=== PATIENT | female | born 1950 | race Caucasian/White ===

== ENCOUNTER → 2016-09-02 | Outpatient (CLI) | payer OTHER, MEDICARE | LOC: FIMAGING 08:17 | PROVIDERS: ATTEND Internal Medicine | DX: K59.00 Constipation, unspecified (principal); J98.11 Atelectasis; S22.41XA Multiple fractures of ribs, right side, initial encounter for closed fracture; M41.86 Other forms of scoliosis, lumbar region; M51.36 Other intervertebral disc degeneration, lumbar region ==

== ENCOUNTER → 2017-06-27 | Outpatient (CLI) | payer OTHER, MEDICARE | LOC: FIMAGING 11:17 | PROVIDERS: ATTEND Internal Medicine | DX: Z12.31 Encounter for screening mammogram for malignant neoplasm of breast (principal) ==

== ENCOUNTER 2017-07-13 08:24 | Observation (INO) | payer OTHER, MEDICARE ==
[2017-07-13 09:01] LABS: PLATELET COUNT 121 10^3/uL (150-400)
--- NOTE | 2017-07-13 09:06 | EDPHY ---
General - History Smoking Status: Never smoked Time Seen by Provider: 07/13/17 08:54 Narrative: CHIEF COMPLAINT: Sternal pain, right chest and rib pain HISTORY OF PRESENT ILLNESS: Patient presents with complaints of sternal and right-sided rib and chest pain. This started approximately 1 week ago when she tripped and fell. She was traveling in [place] when she tripped over a step, landing face forward. She struck her chest and face. She denies loss of consciousness, headache or neck pain. She has had constant sternal and right-sided anterior rib and anterolateral rib pain since that time. It is steadily worsened to the point that she has difficulty taking a deep breath. She has felt worsening pain and some shortness of breath. She has had a cough that has been "wet." Questionable fever. No abdominal pain. No nausea or vomiting. No injury elsewhere. No medical care to this point. No other associated complaints or modifying factors. REVIEW OF SYSTEMS: Ten systems reviewed and are negative unless otherwise noted in the HPI PCP: Dr. 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 No drug or alcohol use. Lives independently with her spouse FAMILY HISTORY: Noncontributory EXAMINATION General Appearance: Alert, no distress Head: normocephalic, atraumatic Eyes: Pupils equal and round, no conjunctival pallor or injection ENT, Mouth: Mucous membranes moist Neck: Normal inspection, supple, non-tender Respiratory: Lungs are clear to auscultation. No wheezing, rhonchi or crackles. There is tenderness to the sternum and on the right anterior ribs. Cardiovascular: Regular rate and rhythm. No murmur. Gastrointestinal: Abdomen is soft and nontender Back: non-tender, no bony abnormalities Neurological: GCS 15. A&O, nonfocal, normal gait. No pronator drift. Normal [id number]. Skin: Warm and dry, no rash. No petechiae or purpura. No ecchymosis. Extremities: Nontender, no pedal edema. Symmetric range of motion extremities. Psychiatric: Mood and affect normal DIFFERENTIAL DIAGNOSES: Including but not limited to sternal fracture, mediastinal hematoma, rib fracture, pneumothorax, hemothorax, pulmonary contusion, atelectasis MDM: 9:05 a.m. Sternal and right-sided chest pain after a fall approximately 1 week ago. She is mildly hypoxemic but not tachycardic or tachypneic. She is in no acute distress. Laboratory studies are pending. Chest x-ray is pending. I have ordered an EKG and placed her on 2 L nasal cannula. Case discussed with Dr. Jennings 9:30 a.m. CBC is unremarkable. Coag studies minimally abnormal with INR 1.46. Troponin is negative. Chemistry is pending. Chest x-ray as read by me, without the aid of the radiologist, reveals possible sternal fracture and anterior rib fractures. I will obtain a CT scan of the chest for better evaluation. I have re-evaluated the patient and discussed this with her and she agrees to proceed with study. 10:20 a.m. Case discussed with radiologist Dr. Redman. CT scan does reveal sternal fracture as documented. No hematoma. There also right anterior rib fractures and other subacute rib fractures. No other acute findings. 10:30 a.m. I have re-evaluated the patient. I have taken her off of her nasal cannula. We will ambulate her and monitor her pulse oximetry. Her pain is controlled at rest, but we will place a lidocaine patch for patient directed pain control. 10:40 a.m. Case discussed with trauma surgeon Dr. George. He will evaluate the patient in the emergency department. 11:[address] George has evaluated the patient. He reports a from a trauma standpoint she is marginal for admission. His opinion is that she is likely safe for discharge home as her oxygenation is in the low 90s per he says he would be happy to evaluate the patient for pulmonary toilet tree, oxygenation and pain control. But he is requesting hospitalist consultation as the patient is complicated with her cirrhosis and has reported to him frequent falls. At this time the patient be admitted to his service in stable condition. 11:50 a.m. Case discussed with hospitalist Izabel Whitlock. Hospitalist will provide consultation for the patient. She remains in the emergency department thus far. I have re-evaluated her pain is improvement a Lidoderm patch. Vital signs remained stable with mild hypoxemia at times. 12:30 p.m. Patient is currently being evaluated by Dr. Fung. EKG interpretation: Dr. Jennings Sinus rhythm. No ischemia. SUPERVISION: Patient was independently examined, but I discussed the case with my secondary supervising physician Dr. Jennings (Ab Bentley) Medical Decision Making: I did not see this patient while she was in the emergency department. However her care was discussed with the PA while the patient was in the department. I agree with treatment plan and management (Marilin Jennings) - Diagnostics Imaging Results: Imaging Impressions Chest X-Ray 07/13/17 08:49 Impression: 1. Mildly displaced sternal fracture. There is no evidence of a pneumothorax or pneumomediastinum. 2. Fractures of the peripheral lateral left eighth rib, and right fifth and sixth anterolateral rib fractures. 3. Small bilateral pleural effusions, with bibasilar atelectasis. 4. Cardiomegaly. Findings were discussed with MARILIN JENNINGS MD at 9:53, on 07/13/2017, who has requested a chest CT. Chest/Thorax CTA 07/13/17 09:36 Impression: 1. Acute nondisplaced sternal fracture. No mediastinal/retrosternal hematoma. 2. Acute nondisplaced anterior right third, fourth, and fifth rib fractures. 3. Numerous bilateral subacute partially healed rib fractures. 4. Bibasilar atelectasis. No pneumothorax or pulmonary contusion. 5. Multilevel degenerative disk disease. No thoracic spine fracture. Findings discussed with Emergency Department, CHARLIE Costa, on 07/13/2017 at 10:28 a.m. - Objective Vital Signs: Initial Vital Signs Temperature (C) 37.4 C 07/13/17 08:31 Heart Rate 90 07/13/17 08:31 Respiratory Rate 14 07/13/17 08:31 Blood Pressure 161/73 H 07/13/17 08:31 O2 Sat (%) 88 L 07/13/17 08:31 O2 Delivery Mode Room Air O2 (L/minute) 2 Allergies/Adverse Reactions: cortisone [Cortisone] Allergy (Severe, Verified 07/13/17 08:31) Hives oxycodone HCl [From Percocet] Allergy (Intermediate, Verified 07/13/17 08:31) Itching acetaminophen [From Percocet] Allergy (Unknown, Verified 07/13/17 08:31) UNK Home Medications: Medication Instructions Recorded Calcium Carb W/Vit D [Calcium Carb 500 mg PO DAILY 10/29/09 W/Vit D 500/200 (*)] Esomeprazole Mag Trihydrate 40 mg PO HS 07/13/17 [Nexium] FLUoxetine [Prozac 20 MG (*)] 20 mg PO DAILY 07/13/17 Furosemide [Lasix 40 MG (*)] 40 mg PO DAILY 07/13/17 Herbals/Supplements -Info Only 1 ea PO DAILY 07/13/17 Tillar-3 Fatty Acids [Fish Oil 1000 1,000 mg PO DAILY 07/13/17 mg (*)] Rifaximin [Xifaxan] 550 mg PO BID 07/13/17 Spironolactone [Aldactone 50 MG 50 mg PO DAILY 07/13/17 (RX)] Laboratory Results: Laboratory Results 07/13/17 08:46 07/13/17 08:46 07/13/17 07/13/17 07/13/17 09:13 08:46 08:46 WBC RBC Hgb Hct MCV MCH MCHC RDW Plt Count MPV Neut % (Auto) Lymph % (Auto) Oldham % (Auto) Eos % (Auto) Baso % (Auto) Nucleat RBC Rel Count Absolute Neuts (auto) Absolute Lymphs (auto) Absolute Monos (auto) Absolute Eos (auto) Absolute Basos (auto) Absolute Nucleated RBC Immature Gran % Immature Gran # PT 17.9 SEC H SEC (12.0-15.0) INR 1.46 H (0.83-1.16) APTT 34.5 SEC SEC (23.0-38.0) Sodium 140 mEq/L mEq/L (135-145) Potassium 4.6 mEq/L mEq/L (3.3-5.0) Chloride 106 mEq/L mEq/L (97-110) Carbon Dioxide 25 mEq/l mEq/l (22-31) Anion Gap 9 mEq/L mEq/L (8-16) BUN 17 mg/dL mg/dL (7-23) Creatinine 0.6 mg/dL mg/dL (0.6-1.0) Estimated GFR > 60 Glucose 157 mg/dL H mg/dL (70-100) Calcium 9.0 mg/dL mg/dL (8.5-10.4) Troponin I < 0.012 ng/mL ng/mL (0.000-0.034) NT-Pro-B Natriuret Pep 185 pg/mL H pg/mL (0-125) 07/13/17 08:46 WBC 4.77 10^3/uL 10^3/uL (3.80-9.50) RBC 3.85 10^6/uL L 10^6/uL (4.18-5.33) Hgb 13.3 g/dL g/dL (12.6-16.3) Hct 38.0 % % (38.0-47.0) MCV 98.7 fL fL (81.5-99.8) MCH 34.5 pg H pg (27.9-34.1) MCHC 35.0 g/dL g/dL (32.4-36.7) RDW 13.2 % % (11.5-15.2) Plt Count 121 10^3/uL L 10^3/uL (150-400) MPV 10.3 fL fL (8.7-11.7) Neut % (Auto) 57.3 % % (39.3-74.2) Lymph % (Auto) 27.7 % % (15.0-45.0) Oldham % (Auto) 9.6 % % (4.5-13.0) Eos % (Auto) 3.8 % % (0.6-7.6) Baso % (Auto) 0.6 % % (0.3-1.7) Nucleat RBC Rel Count 0.0 % % (0.0-0.2) Absolute Neuts (auto) 2.73 10^3/uL 10^3/uL (1.70-6.50) Absolute Lymphs (auto) 1.32 10^3/uL 10^3/uL (1.00-3.00) Absolute Monos (auto) 0.46 10^3/uL 10^3/uL (0.30-0.80) Absolute Eos (auto) 0.18 10^3/uL 10^3/uL (0.03-0.40) Absolute Basos (auto) 0.03 10^3/uL 10^3/uL (0.02-0.10) Absolute Nucleated RBC 0.00 10^3/uL 10^3/uL (0-0.01) Immature Gran % 1.0 % % (0.0-1.1) Immature Gran # 0.05 10^3/uL 10^3/uL (0.00-0.10) PT INR APTT Sodium Potassium Chloride Carbon Dioxide Anion Gap BUN Creatinine Estimated GFR Glucose Calcium Troponin I NT-Pro-B Natriuret Pep Medications Given: Acetaminophen (Tylenol) 325 - 650 mg PO Q4HRS PRN PRN Reason: Pain, Mild Able to Take PO Stop: 01/09/18 11:53 Last Admin: 07/13/17 14:22 Dose: 650 mg Miscellaneous Information (Patch Removal) 1 ea TD DAILY21 BRITTNEY Stop: 01/09/18 20:59 Last Admin: 07/13/17 10:44 Dose: Not Given Miscellaneous Medication (Icy Hot Lidocaine/Menthol 4%/1% Patch) 1 patch TD DAILY BRITTNEY Stop: 01/09/18 12:14 Last Admin: 07/13/17 14:23 Dose: 1 patch Rifaximin (Xifaxan) 550 mg PO BID BRITTNEY PRN Reason: Protocol Stop: 08/12/17 12:59 Last Admin: 07/13/17 14:23 Dose: 550 mg Discontinued Medications Sodium Chloride (Ns) 500 mls @ 0 mls/hr IV EDNOW ONE; Wide Open PRN Reason: Protocol Stop: 07/13/17 09:40 Last Admin: 07/13/17 09:41 Dose: 500 mls Miscellaneous Medication (Icy Hot Lidocaine/Menthol 4%/1% Patch) 1 patch TD EDNOW ONE Stop: 07/13/17 10:37 Last Admin: 07/13/17 10:43 Dose: 1 patch Departure - Departure Disposition: [facility] Inpatient Acute Clinical Impression: Liver cirrhosis secondary to MEDEROS Sternal fracture Qualifiers: Encounter type: initial encounter Sternal location: body of sternum Fracture type: closed Qualified Code(s): S22.22XA - Fracture of body of sternum, initial encounter for closed fracture Multiple fractures of ribs Qualifiers: Encounter type: initial encounter Fracture type: closed Laterality: right Qualified Code(s): S22.41XA - Multiple fractures of ribs, right side, initial encounter for closed fracture Condition: Good
[2017-07-13 09:20] LABS: INR 1.46 (0.83-1.16); PROTIME(PATIENT) 17.9 SEC (12.0-15.0)
--- NOTE | 2017-07-13 09:35 | CPEKG ---
Heart Rate: 67 RR Interval: 896 P-R Interval: 152 QRSD Interval: 74 QT Interval: 400 QTC Interval: 423 P Gallion: 2 QRS Gallion: 35 T Wave Gallion: 40 EKG Severity - NORMAL ECG - EKG Impression: SINUS RHYTHM Electronically Signed By: Serjio Jennings 13-Jul-2017 15:56:25
[2017-07-13] MEDS ORDERED: NS 500 ML IV ONE (09:39)
[2017-07-13] MEDS ORDERED: IOPAMIDOL (ISOVUE 370) 100 ML BTL IV ONE (09:43)
[2017-07-13] MEDS ORDERED: LIDOCAINE 4%/MENTHOL 1% PATCH TD ONE ×2 (10:36→10:37)
[2017-07-13] MEDS: PATCH REMOVAL 1 EA PATCH TD SCH (10:44)
--- NOTE | 2017-07-13 12:34 | PDGENHP ---
History and Physical - Chief Complaint Chest and back pain - History of Present Illness 66-year-old female end-stage liver disease s/p TIPS who presents complaining of chest and back pain status post fall about a week ago. Patient states that she has mainly presenting as she is experiencing more frequent falls in, stating that she fell last week denies loss of consciousness but does state that she fell and hit her chest and has persistent pain since then. [place], she did call her primary care who was in town here who requested that she come to the emergency department for further evaluation. On my evaluation, the patient describes anterior chest as well as right-sided posterior chest pain. She declines having any syncope or syncopal episodes but does state that she is getting dizzy year then she does typically. She has end- stage liver disease, is on the transplant list, frequently gets her labs drawn and is followed by a waitstaff captain at the [facility]. Currently, other than the pain which she describes as sharp, worse with movement, 7/10 in intensity she has no complaints. History Information - Allergies/Home Medication List Allergies/Adverse Reactions: cortisone [Cortisone] Allergy (Severe, Verified 07/13/17 08:31) Hives oxycodone HCl [From Percocet] Allergy (Intermediate, Verified 07/13/17 08:31) Itching acetaminophen [From Percocet] Allergy (Unknown, Verified 07/13/17 08:31) UNK Home Medications: Calcium Carb W/Vit D [Calcium Carb W/Vit D 500/200 (*)] 500 mg PO DAILY [Last Taken 07/12/17] Esomeprazole Mag Trihydrate [Nexium] 40 mg PO HS 07/13/17 [Last Taken 07/12/17] FLUoxetine [Prozac 20 MG (*)] 20 mg PO DAILY 07/13/17 [Last Taken 07/12/17] Furosemide [Lasix 40 MG (*)] 40 mg PO DAILY 07/13/17 [Last Taken 07/12/17] Herbals/Supplements -Info Only 1 ea PO DAILY 07/13/17 [Last Taken Unknown] Oneco-3 Fatty Acids [Fish Oil 1000 mg (*)] 1,000 mg PO DAILY 07/13/17 [Last Taken 07/12/17] Rifaximin [Xifaxan] 550 mg PO BID 07/13/17 [Last Taken 07/12/17 21:00] Spironolactone [Aldactone 50 MG (RX)] 50 mg PO DAILY 07/13/17 [Last Taken ] I have personally reviewed and updated: family history, medical history, social history, surgical history Past Medical History: End-stage liver disease secondary to MEDEROS - Surgical History Additional surgical history: TIPS 5 years ago performed at the [facility], bilateral knee replacements - Social History Smoking Status: Never smoked Alcohol Use: None Review of Systems Review of Systems: ROS: 10pt was reviewed & negative except for what was stated in HPI & below Physical Exam Physical Exam: Temp Pulse Resp BP Pulse Ox 36.6 C 75 14 145/81 H 92 07/13/17 10:50 07/13/17 10:50 07/13/17 10:50 07/13/17 10:50 07/13/17 10:50 Constitutional: no apparent distress, appears nourished, not in pain Eyes: PERRL, anicteric sclera, EOMI Ears, Nose, Mouth, Throat: moist mucous membranes, hearing normal, ears appear normal, no oral mucosal ulcers Cardiovascular: regular rate and rhythym, no murmur, rub, or gallop, No edema Respiratory: no respiratory distress, no rales or rhonchi, clear to auscultation , other (Tender to palpation in anterior and right chest no crepitus no step offs) Gastrointestinal: normoactive bowel sounds, soft, non-tender abdomen, no palpable masses, other (No fluid wave) Genitourinary: no bladder fullness, no bladder tenderness Skin: warm, normal color, no rashes or abrasions, no fluctuance, no induration, No mottled Musculoskeletal: full muscle strength, no muscle tenderness, normal joint ROM, no joint effusions Psychiatric: interacting appropriately, not anxious, not encephalopathic, thought process linear Lymph, Heme, Immunologic: no cervical LAD, no supraclavicular LAD Lab Data & Imaging Review 07/13/17 08:46 07/13/17 08:46 WBC 4.77 10^3/uL (3.80-9.50) 07/13/17 08:46 RBC 3.85 10^6/uL (4.18-5.33) L 07/13/17 08:46 Hgb 13.3 g/dL (12.6-16.3) 07/13/17 08:46 Hct 38.0 % (38.0-47.0) 07/13/17 08:46 MCV 98.7 fL (81.5-99.8) 07/13/17 08:46 MCH 34.5 pg (27.9-34.1) H 07/13/17 08:46 MCHC 35.0 g/dL (32.4-36.7) 07/13/17 08:46 RDW 13.2 % (11.5-15.2) 07/13/17 08:46 Plt Count 121 10^3/uL (150-400) L 07/13/17 08:46 MPV 10.3 fL (8.7-11.7) 07/13/17 08:46 Neut % (Auto) 57.3 % (39.3-74.2) 07/13/17 08:46 Lymph % (Auto) 27.7 % (15.0-45.0) 07/13/17 08:46 Stone % (Auto) 9.6 % (4.5-13.0) 07/13/17 08:46 Eos % (Auto) 3.8 % (0.6-7.6) 07/13/17 08:46 Baso % (Auto) 0.6 % (0.3-1.7) 07/13/17 08:46 Nucleat RBC Rel Count 0.0 % (0.0-0.2) 07/13/17 08:46 Absolute Neuts (auto) 2.73 10^3/uL (1.70-6.50) 07/13/17 08:46 Absolute Lymphs (auto) 1.32 10^3/uL (1.00-3.00) 07/13/17 08:46 Absolute Monos (auto) 0.46 10^3/uL (0.30-0.80) 07/13/17 08:46 Absolute Eos (auto) 0.18 10^3/uL (0.03-0.40) 07/13/17 08:46 Absolute Basos (auto) 0.03 10^3/uL (0.02-0.10) 07/13/17 08:46 Absolute Nucleated RBC 0.00 10^3/uL (0-0.01) 07/13/17 08:46 Immature Gran % 1.0 % (0.0-1.1) 07/13/17 08:46 Immature Gran # 0.05 10^3/uL (0.00-0.10) 07/13/17 08:46 PT 17.9 SEC (12.0-15.0) H 07/13/17 08:46 INR 1.46 (0.83-1.16) H 07/13/17 08:46 APTT 34.5 SEC (23.0-38.0) 07/13/17 08:46 Sodium 140 mEq/L (135-145) 07/13/17 08:46 Potassium 4.6 mEq/L (3.3-5.0) 07/13/17 08:46 Chloride 106 mEq/L (97-110) 07/13/17 08:46 Carbon Dioxide 25 mEq/l (22-31) 07/13/17 08:46 Anion Gap 9 mEq/L (8-16) 07/13/17 08:46 BUN 17 mg/dL (7-23) 07/13/17 08:46 Creatinine 0.6 mg/dL (0.6-1.0) 07/13/17 08:46 Estimated GFR > 60 07/13/17 08:46 Glucose 157 mg/dL (70-100) H 07/13/17 08:46 Calcium 9.0 mg/dL (8.5-10.4) 07/13/17 08:46 Troponin I < 0.012 ng/mL (0.000-0.034) 07/13/17 08:46 NT-Pro-B Natriuret Pep 185 pg/mL (0-125) H 07/13/17 09:13 Visualized and Interpreted imaging results: Yes Interpretation: Chest film and CTA: Acute sternal fracture, acute rib fractures , multiple healed rib fractures no hemopneumothorax Assessment & Plan Assessment: 66-year-old female in stage liver disease secondary to nonalcoholic steatohepatitis, MELD of 17 Plan: On my examination the emergency department, the patient looks stable at this point. Given her medical comorbidities and in light of her increasing number of falls in addition to her tachycardia and hypoxemia I do feel that admission at least for observation is warranted so that we can ensure that no acute medical process is currently happening. I have asked the emergency department to have the medical service see her as well. Plan will be for pain control utilizing lidocaine patches and low doses of Tylenol as this is her outpatient pain control regimen. Place her on her monitor and storage bin tender given her sternal fracture but I do not see any acute changes on her EKG, no role for echocardiogram here. Will check some further liver function enzymes as well as an ammonia level. Discussed my rationale for admission with the patient she is in agreement.
--- NOTE | 2017-07-13 13:27 | GCON ---
[f rep st] CONSULTATION DATE OF CONSULTATION: 07/13/2017 HISTORY OF PRESENT ILLNESS: The patient is a pleasant 66-year-old female with a history of cirrhosis secondary to nonalcoholic steatohepatitis, as well as frequent falls, who comes into the emergency d epartment about a week after a fall. She is being admitted to the Trauma Service for further evaluat ion. I am asked to comment on her medical contributions to her falls. With regard to her falls, she describes the last one as tripping over something, on some toys in her house. It sounds like she takes care of her grandkids. She has had her eyes checked and found her v isual chapman to be intact. She denies antecedent orthostasis or presyncopal type symptoms. She is n ot having chest pain. She does not have a significant amount of lower extremity edema. She has gone through physical therapy following falls. She had a fall where she broke her left humer us. She does not take narcotics. She does not take marijuana products and does not drink alcohol. She does not appear to be losing consciousness with these falls. It sounds like there may be some cl utter in her house, but she has worked to get rid of that. She notes that she has not been a klutz all her life. REVIEW OF SYSTEMS: Complete 10-point review of systems conducted and negative, except as noted in th e HPI. PAST MEDICAL HISTORY: 1. Cirrhosis secondary to MEDEROS. 2. Knee replacement. 3. Humerus fracture. 4. Rotator cuff repair. ALLERGIES: Cortisone, oxycodone, and acetaminophen. HOME MEDICATIONS: Lasix, spironolactone, rifaximin, Kristalose (which is like lactulose), fluoxetine , esomeprazole, calcium carbonate. SOCIAL HISTORY: No alcohol. No tobacco. Lives in [place]. FAMILY HISTORY: Reviewed and unremarkable. PHYSICAL EXAMINATION: VITAL SIGNS: Temp 37.4, blood pressure 161/73, pulse 90, breathing 14 times a minute, 88% on room air, 94% on 2 L. GENERAL: No acute distress. HEENT: Sclerae are icteric. Or opharynx clear. Mucous membranes are moist. NECK: Supple, without lymphadenopathy or JVD. LUNGS: Clear to auscultation bilaterally. HEART: S1, S2, with moderate ascites. ABDOMEN: Soft, nontende r, nondistended. LOWER EXTREMITIES: Trace edema bilaterally. Calves are nontender. SKIN: Without rash. NEUROLOGIC: Exam is nonfocal. LABS: White count 4.8, hematocrit 38. Platelets are 121,000. INR is 1.46. Sodium 140, potassium 4 .6, chloride 106, bicarb 25, BUN 17, creatinine 0.6, glucose 157. Troponin less than 0.012. BNP is modestly elevated at 185. Ammonia is 32. EKG interpreted by me shows sinus at 67 with normal axis a nd intervals. There are no ST or T-wave changes. There are no noted pauses. Chest x-ray interprete d by me shows rib fractures, small effusion. CTA of the chest shows nondisplaced sternal fracture, a cute anterior right 3rd, 4th and 5th rib fractures. Numerous bilateral, subacute, partially healed r ib fractures, bibasilar atelectasis. No pulmonary contusion. I have discussed the case with JACKIE Alamo, of the Emergency Department. ASSESSMENT/PLAN: 1. A 66-year-old female with cirrhosis, with frequent falls. 2. Falls. These appear to be mechanical in nature in the sense that she is tripping over stuff. Sh inna claims to have had a normal eye exam. a. I think ongoing physical and occupational therapy with balance training would be appropriate, as well as a decluttering and perhaps home safety evaluation. b. Medical causes of the falls are not apparent from the history, but it is reasonable to follow on telemetry and check an echocardiogram. Pulmonary hypertension can coexist with cirrhosis. This can cause syncope. 3. Cirrhosis. Continue her diuretics and rifaximin. 4. Elevated BNP. This is barely elevated. Would not further evaluate this. 5. Hypoxemia. Encourage incentive spirometry. 6. Prophylaxis. Will provide SCDs. 7. Disposition as per Trauma Surgery. We will follow this patient with you. Thank you for this consultation. /[id number]/MODL
[2017-07-13] MEDS: ACETAMINOPHEN 325 MG TAB PO PRN ×2 (14:22→22:33)
[2017-07-13] MEDS: LIDOCAINE 4%/MENTHOL 1% PATCH TD SCH (14:23)
[2017-07-13] MEDS: RIFAXIMIN 550 MG TAB PO SCH ×2 (14:23→22:33)
--- NOTE | 2017-07-13 14:59 | ECHO ---
[email or web address] [address] [address] Main: [phone] Fax: Transthoracic Echocardiogram Name: KARI VARGAS MR#: [id number] Study Date: 07/13/2017 Study Time: 01:51 PM Date of : 1950 Age: 66 year(s) Height: 165.1 cm (65 in.) Weight: 76.2 kg (168 lb.) BSA: 1.84 m2 Gender: Female Examination: Echo Indication: ESLD Image Quality: Contrast: Requested by: Robin Fung BP: 164 mmHg/74 mmHg Heart Rate: Rhythm: Indication: ESLD Procedure Staff Professional Caster: Heraclio Kerns RDCS Reading Physician: Requesting Provider: Measurements: Chambers Valvular Assessment AV/MV Valvular Assessment TV/PV Normal Normal Normal Name Value Range Name Value Range Name Value Range IVSd (2D): 0.8 cm (0.6 cm-1.1 AV Vmax: 1.91 m/s (1 m/s-1.7 TR Vmax: 2.55 mm/s ( - ) cm) m/s) TR PGmax: 26 mmHg ( - ) LVDd (2D): 4.0 cm (3.9 cm-5.3 AV maxP mmHg ( - ) syst. PAP: 31 mmHg ( - ) cm) LVOT Vmax: 1.32 m/s (0.7 m/s-1.1 PV Vmax: 1.17 m/s (0.6 m/s-0.9 LVDs (2D): 2.1 cm (2.1 cm-4 m/s) m/s) cm) MV E Vmax: 1.22 m/s ( - ) PV PGmax: 5 mmHg ( - ) LVPWd (2D): 0.8 cm ( - ) MV A Vmax: 1.10 m/s ( - ) Visual EF: 70 % MV E/A: 1.11 ( - ) EF Range: 65-70 % Continued Measurements: Chambers Valvular Assessment AV/MV Valvular Assessment TV/PV Name Value Name Value Name Value LADs Lon.8 cm MV E' Septal: 0.09 m/s CVP (est.): 5 mmHg LA Area: 17.8 cm2 MV E/E' Septal: 13.80 LA Volume: 52 ml MV E/E' Lateral: 11.30 LA Volume Index: 28.3 ml/m2 Findings: Left Ventricle: Normal size left ventricle. No LV hypertrophy. Global hypercontractility of the left ventricle. The ejection fraction is estimated to be 65-70 %. The ejection fraction is visually estimated to be 70 %. No regional wall motion abnormality. Diastolic dysfunction is present. . Right Ventricle: Patient: KARI VARGAS Study Date: 07/13/2017 Page 1 of 2 01:51 PM Normal size right ventricle. Normal RV function. Left Atrium: The left atrium is normal in size. Right Atrium: The right atrium is normal in size. Mitral Valve: Mild mitral valve leaflet calcification is present. There is no mitral valve regurgitation. Aortic Valve: The aortic valve is tri-leaflet. Minimal aortic cusp calcification is noted. Trivial aortic valve regurgitation. Tricuspid Valve: The tricuspid valve appears normal. Pulmonic Valve: The pulmonic valve is normal in appearance and function. Aorta: The aorta is normal. Pericardium: No pericardial effusion. (No Signature Object) Patient: KARI VARGAS Study Date: 07/13/2017 Page 2 of 2 01:51 PM [id number]
[2017-07-13] MEDS ORDERED: PATCH REMOVAL 1 EA PATCH TD SCH (21:00)
[2017-07-13] MEDS ORDERED: NON-FORMULARY NEW DRUG (Esomeprazole Mag Trihydrate [Nexium] 40 MG) PO SCH (21:00)
[2017-07-13] MEDS: PANTOPRAZOLE SODIUM 40 MG TAB PO SCH (22:24)
[2017-07-14] MEDS ORDERED: Herbals/Supplements -Info Only PO SCH (09:00)
--- NOTE | 2017-07-14 09:28 | TRAUMAPN ---
Trauma Progress Note - Problem/Surgery Performed (1) Fall in home Assessment/Plan: patient remembers tripping and did not lose consciousness/agree with Dr. 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 Assessment/Plan: chronic/on transplant list mild elevation INR mild thrombocytopenia will hold off on VTE prophylaxis for now (3) Multiple fractures of ribs Assessment/Plan: clinically stable/discussed importance of chest physiotherapy and deep breathing Qualifiers: Encounter type: initial encounter Fracture type: closed Laterality: right Qualified Code(s): S22.41XA - Multiple fractures of ribs, right side, initial encounter for closed fracture (4) Sternal fracture Assessment/Plan: discussed non-operative management ECHO reviewed with patient, no pericardial effusion, mild AI, normal EF consider bone density as outpatient Qualifiers: Encounter type: initial encounter Sternal location: body of sternum Fracture type: closed Qualified Code(s): S22.22XA - Fracture of body of sternum, initial encounter for closed fracture Assessment/Plan: s/p fall with sternal and rib fx. co-morbidities due to cirrhosis discussed need for OT/PT assesments if cleared by OT/PT will be stable for discharge home Subjective: awake and alert/anterior chest pain with movement, coughing no hemoptysis denies MATT/LOC/neck or back pain, extremity pain Objective: Vital Signs Temp Pulse Resp BP Pulse Ox 36.5 C 88 18 156/72 H 94 07/14/17 06:22 07/14/17 06:22 07/14/17 06:22 07/14/17 06:22 07/14/17 06:22 07/13/17 07/14/17 07/15/17 05:59 05:59 05:59 Intake Total 700 Balance 700 PT 17.9 SEC (12.0-15.0) H 07/13/17 08:46 INR 1.46 (0.83-1.16) H 07/13/17 08:46 - C-Spine Clearance Cervical Spine Cleared: Yes Provider who Cleared Cervical Spine: Doris Physical Exam - Physical Exam General Appearance: WD/WN, alert, no apparent distress, other (Tertiary Exam complete) EENT: PERRL/EOMI, normal ENT inspection Neck: non-tender, full range of motion, supple Respiratory: lungs clear, decreased breath sounds, pain on movement Cardiac/Chest: regular rate, rhythm, systolic murmur Abdomen: non-tender, soft, hepatomegaly Pelvic Exam: other (stable to anterior/lateral compression) Rectal: deferred Back: Normal inspection Skin: warm/dry Extremities: normal range of motion, non-tender Neuro/Psych: no motor/sensory deficits, alert, normal mood/affect, oriented x 3 Time Spent w/Patient (minutes): 15
--- NOTE | 2017-07-14 10:00 | HOSPPROG ---
Hospitalist Progress Note Assessment/Plan: 66 yo F w cirrhosis 2/2 MEDEROS here w falls, sternal and rib fractures falls: sounds mechanical in nature no pre syncopal or LOC sx normal echo no events tele await orthostatics MEDEROS w cirrhosis: continue diuretics osteoporosis: outpt workup discussed w patient proph: scd's dispo: per trauma surgery OK for dc per hospital medicine Subjective: case d/w dr roberts. no events tele (interp by me) Objective: Vital Signs Temp Pulse Resp BP Pulse Ox 36.5 C 88 18 156/72 H 94 07/14/17 06:22 07/14/17 06:22 07/14/17 06:22 07/14/17 06:22 07/14/17 06:22 07/13/17 07/14/17 07/15/17 05:59 05:59 05:59 Intake Total 700 Balance 700 PT 17.9 SEC (12.0-15.0) H 07/13/17 08:46 INR 1.46 (0.83-1.16) H 07/13/17 08:46 - Physical Exam Constitutional: no apparent distress, appears nourished Eyes: PERRL Ears, Nose, Mouth, Throat: moist mucous membranes, hearing normal Cardiovascular: regular rate and rhythym, no murmur, rub, or gallop Respiratory: no respiratory distress, no rales or rhonchi Gastrointestinal: normoactive bowel sounds, soft, non-tender abdomen Genitourinary: no bladder fullness, No quinn in urethra Skin: warm, normal color Musculoskeletal: full muscle strength Neurologic: AAOx3 ICD10 Worksheet Patient Problems: Problems Problem Status Onset Fall in home Acute Liver cirrhosis secondary to MEDEROS Acute Multiple fractures of ribs Acute Sternal fracture Acute
[2017-07-14] MEDS: RIFAXIMIN 550 MG TAB PO SCH ×2 (11:15→20:25)
[2017-07-14] MEDS: CALCIUM CARB W/VIT D 500 MG TAB PO SCH (11:15)
[2017-07-14] MEDS: OMEGA-3 FATTY ACIDS 1,000 MG CAP PO SCH (11:16)
[2017-07-14] MEDS: SPIRONOLACTONE 50 MG TAB PO SCH (11:16)
[2017-07-14] MEDS: ACETAMINOPHEN 325 MG TAB PO PRN ×2 (11:16→20:26)
[2017-07-14] MEDS: FUROSEMIDE 40 MG TAB PO SCH (11:16)
[2017-07-14] MEDS: FLUoxetine 20 MG CAP PO SCH (11:16)
[2017-07-14] MEDS: LIDOCAINE 4%/MENTHOL 1% PATCH TD SCH (11:16)
[2017-07-14] MEDS: PANTOPRAZOLE SODIUM 40 MG TAB PO SCH (20:26)
[2017-07-14] MEDS: PATCH REMOVAL 1 EA PATCH TD SCH (22:04)
--- NOTE | 2017-07-15 06:46 | PDDCSUM ---
Discharge Summary Discharge Summary: #[id number] Discharge Summary Dictated S MD Zita, FACS
[2017-07-15 07:16] VITALS: BP 136/59
--- NOTE | 2017-07-15 07:41 | GDS ---
[f rep st] DISCHARGE SUMMARY DISCHARGE DIAGNOSES: 1. Status post fall at home. 2. Mid sternal fracture, minimally displaced. 3. Nondisplaced anterior right 3rd, 4th, and 5th rib fractures. 4. 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 Mild hypoxemia. CONSULTATIONS DURING THIS HOSPITALIZATION: Hospitalist service, Dr. Robin Fung. HOSPITAL COURSE: For details of admission history and physical, please see the dictated summary by Emily George. Briefly, the patient is a 66-year-old female who presented to the emergency room for evaluation of chest pain. She had fallen at home earlier in the week and contacted her physician's o terrell who advised her to come to the emergency room. She was found to have a sternal fracture and mu ltiple right-sided rib fractures with mild hypoxemia with oxygen saturations in the high 80s. Normal ly, she would not be using oxygen at home and has been a lifelong nonsmoker. The patient was admitted to the Trauma service for observation. She was admitted to the intensive ca re unit on a monitor and hospitalist consultation was obtained. There was no clinical evidence or hi story of syncopal episodes and she had no cardiac arrhythmias during her hospital stay. An echocardi ogram showed mild aortic insufficiency with normal ejection fraction. On the 2nd hospital day, the patient remained mildly hypoxemic with pain with movement or coughing, b ut had no secondary findings on tertiary survey. She was transferred from the intensive care unit to med/surg, where she remained on a pulse oximeter, and on the morning of discharge, had O2 sats in the 90% to 91% range on room air. Her lungs remaine d clear with diminished breath sounds at the bases. She had tenderness over the mid sternum without crepitus and a stable systolic murmur on exam. There were no other injuries identified. Patient was discharged home. She has a followup arranged with her physician, Dr. Shaylee Bhatia, on Sunday morning, 07/16, and with her liver specialist at [facility] later in the week. The patient is on the transplant list. DISCHARGE MEDICATIONS: The patient will resume calcium carbonate with vitamin D 500/200 p.o. daily, Nexium 40 mg q.h.s., Prozac 20 mg p.o. daily, Lasix 40 mg p.o. daily, rifaximin 550 mg p.o. b.i.d., a nd spironolactone 50 mg p.o. daily. The patient had a lidocaine patch applied to her right posterola teral chest for pain relief and took no narcotics for pain while she was hospitalized. The patient r eported taking Tylenol at home and I recommended that she discuss this further with her commercial lines manager before continuing and she was agreeable. The patient will follow up with Dr. Shaylee Bhatia and in m y office on an as-needed basis. /[id number]/MODL
[2017-07-15] MEDS: FLUoxetine 20 MG CAP PO SCH (07:43)
[2017-07-15] MEDS: RIFAXIMIN 550 MG TAB PO SCH (07:43)
[2017-07-15] MEDS: CALCIUM CARB W/VIT D 500 MG TAB PO SCH (07:43)
[2017-07-15] MEDS: OMEGA-3 FATTY ACIDS 1,000 MG CAP PO SCH (07:43)
[2017-07-15] MEDS: LIDOCAINE 4%/MENTHOL 1% PATCH TD SCH (07:44)
[2017-07-15] MEDS: FUROSEMIDE 40 MG TAB PO SCH (07:44)
[2017-07-15] MEDS: SPIRONOLACTONE 50 MG TAB PO SCH (10:42)
[2017-07-15] MEDS: ACETAMINOPHEN 325 MG TAB PO PRN (10:43)
== END 2017-07-15 10:56 | disposition home or self-care (01) ==
LOC: F2N 14:10 → F3N 07-14 22:02
PROVIDERS: ADMIT Surgery; ATTEND Surgery
DX: S22.22XA Fracture of body of sternum, initial encounter for closed fracture (principal); S22.41XA Multiple fractures of ribs, right side, initial encounter for closed fracture; W10.8XXA Fall (on) (from) other stairs and steps, initial encounter; Y92.89 Other specified places as the place of occurrence of the external cause; Y93.01 Activity, walking, marching and hiking; Y99.8 Other external cause status; R29.6 Repeated falls; R09.02 Hypoxemia; R00.0 Tachycardia, unspecified; E86.9 Volume depletion, unspecified; K74.60 Unspecified cirrhosis of liver; K75.81 Nonalcoholic steatohepatitis (NASH); J45.909 Unspecified asthma, uncomplicated; I51.7 Cardiomegaly; J90 Pleural effusion, not elsewhere classified; Z96.89 Presence of other specified functional implants; Z96.653 Presence of artificial knee joint, bilateral; Z76.82 Awaiting organ transplant status
CPT/HCPCS: 71046; 71275; 92523; 93005; 93306; 97116; 97161; 97165; G0378; G8978; G8979; G8987; G8988; G8989; G9168; G9169; G9170; Q9967

== ENCOUNTER 2017-08-30 11:13 | Emergency (ER) | payer OTHER, MEDICARE ==
--- NOTE | 2017-08-30 12:49 | EDPHY ---
H & P Stated Complaint: R ankle injury L eyebrow lac Time Seen by Provider: 08/30/17 12:20 HPI/ROS: CHIEF COMPLAINT: Right ankle injury, head injury HISTORY OF PRESENT ILLNESS: 66-year-old female no anticoagulant use arrives via private vehicle after she rolled her right foot and subsequently impacted her left head. No loss of consciousness. This was a mechanical incident non syncopal episode. She is complaining of mild nonprogressive non thunderclap headache which occurred shortly prior to arrival. She is able bear partial weight on the right lower extremity only. Regarding her head injury, no nausea or vomiting, no midline C-spine pain, no back pain, no chest pain or trauma, no abdominal pain or trauma, no dyspnea. REVIEW OF SYSTEMS: A ten point review of systems was performed and is negative with the exception of the items mentioned in the HPI PAST MEDICAL/SURGICAL HISTORY: Liver failure, on transplant list SOCIAL HISTORY: denies alcohol use at time of incident PHYSICAL EXAM 1) GENERAL: Well-developed, well-nourished, alert and oriented. Appears to be in no acute distress. Answering questions appropriately. 2) HEAD: Normocephalic, left frontal 2 cm well-demarcated laceration 3) HEENT: Pupils equal, round, reactive to light bilaterally. Negative Horners. Nasopharynx, oropharynx, clear. No deformity or angulation of nose. No septal hematoma. No rhinorrhea. No oral trauma. Ears bilaterally with normal tympanic membranes. No hemotympanum. No fluid or blood in the external auditory canal. No raccoon eyes. No Agrawal sign. Teeth are normally aligned with no gross malocclusion, TMJ bilaterally nontender, facial bones nontender including the zygomatic arch, maxilla mandible. 4) NECK: No cervical collar is on. Posterior cervical spine is nontender, no stepoff, no effusion. Full range of motion which does not elicit any midline cervical spine pain, no posterior midline tenderness, no step-off. Cervical collar is on.Cervical collar is removed while holding inline traction and patient is unable to completely differentiate between true midline pain versus just lateral of midline pain.Cervical collar is replaced at that point.and patient has no complaints of midline cervical pain, no effusion noted, trachea midline, no JVD. 5) LUNGS: Clear to auscultation bilaterally, no wheezes, no rhonchi, no retractions. No obvious signs of trauma. No chest wall pain. No flaring, no grunting. Moving symmetrically. No crepitus. 6) HEART: Regular rate and rhythm, 7) ABDOMEN: No guarding, no rebound, no focal tenderness, no peritoneal signs, no signs of trauma, no ecchymosis 8) MUSCULOSKELETAL: Right lower extremity: Tender to palpation with soft tissue swelling lateral malleolus. Proximal tibia and fibula fibular head are nontender. Soft compartments. Foot including 5th metatarsal nontender. DP PT pulses present and brisk. Intact skin no tenting. No puncture wound. Otherwise, Moving all extremities, no focal areas of tenderness, no obvious trauma. 9) BACK: No midline vertebral tenderness, no fluctuance, no step-off, no obvious trauma, no visual or palpable abnormality. 10) SKIN: forehead laceration DIFFERENTIAL DIAGNOSIS: Not necessarily in any particular order, my differential diagnosis includes, but is not limited to, concussion, skull fracture, intraparenchymal contusion, subarachnoid, subdural and epidural hematoma. The patient understands that this diagnosis is provisional and can never be 100% accurate. - Personal History Current Tetanus/Diphtheria Vaccine: Yes Current Tetanus Diphtheria and Acellular Pertussis (TDAP): Yes - Medical/Surgical History Hx Asthma: Yes Hx Chronic Respiratory Disease: No Hx Diabetes: No Hx Cardiac Disease: No Hx Renal Disease: No Hx Cirrhosis: Yes Hx Alcoholism: No Hx HIV/AIDS: No Hx Splenectomy or Spleen Trauma: No Other PMH: liver failure, liver shunt, liver transplant list, psorrhisis, choly , JULIANNA knee replacement - Social History Smoking Status: Never smoked Constitutional: Initial Vital Signs Temperature (C) 36.6 C 08/30/17 11:19 Heart Rate 91 08/30/17 11:19 Respiratory Rate 16 08/30/17 11:19 Blood Pressure 127/94 H 08/30/17 11:19 O2 Sat (%) 92 08/30/17 11:19 O2 Delivery Mode Room Air Allergies/Adverse Reactions: cortisone [Cortisone] Allergy (Severe, Verified 08/30/17 11:18) Hives oxycodone HCl [From Percocet] Allergy (Intermediate, Verified 08/30/17 11:18) Itching acetaminophen [From Percocet] Allergy (Unknown, Verified 08/30/17 11:18) UNK Home Medications: Medication Instructions Recorded Calcium Carb W/Vit D [Calcium Carb 500 mg PO DAILY 10/29/09 W/Vit D 500/200 (*)] Esomeprazole Mag Trihydrate 40 mg PO HS 07/13/17 [Nexium] FLUoxetine [Prozac 20 MG (*)] 20 mg PO DAILY 07/13/17 Furosemide [Lasix 40 MG (*)] 40 mg PO DAILY 07/13/17 Overton-3 Fatty Acids [Fish Oil 1000 1,000 mg PO DAILY 07/13/17 mg (*)] Rifaximin [Xifaxan] 550 mg PO BID 07/13/17 Spironolactone [Aldactone] 50 mg PO DAILY 07/13/17 Lidocaine 4%/Menthol 1% [Icy Hot 1 patch TD DAILY #10 patch 07/15/17 Lidocaine/Menthol 4%/1% Patch (*)] Patch Removal 1 ea TD DAILY21 patch 07/15/17 Advair 100/50 (*) 08/30/17 Medical Decision Making - Diagnostics Imaging Results: Imaging Impressions Ankle X-Ray 08/30/17 11:22 Impression: Minimally displaced acute fracture of the fibular tip. There is also an accessory ossicle versus avulsion fragment from remote trauma at the lateral malleolus. Head CT 08/30/17 12:27 Impression: 1. No acute posttraumatic abnormality identified. 2. Right frontal ethmoid and maxillary sinus disease. Results called to JACKIE Molina at 1:38 PM. General information for patients regarding this examination can be found at [email or web address]. If you have questions or comments about this report, please contact me at [phone] (hospital) or [phone] (cell). Procedures: Procedure: Splint A Aiden boot splint was applied by ER treatment technician. After application of the splint I returned and re-examined the patient. The splint was adequately immobilizing the joint and distal to the splint the patient's circulation and sensation were intact. Patient shows no signs of compartment syndrome. Was given orthopedic precautions. Procedure: Laceration repair with tissue adhesive Verbal consent was obtained from the patient. The 2 cm laceration on the left eyebrow was anesthetized with 1% lidocaine with epinephrine, was scrubbed and explored to its base with a gloved finger. No foreign body seen, no foreign bodies palpated. There were no deep structures involved. The wound was repaired with tissue adhesive. The procedure was performed by myself. Patient has been informed that scarring will occur, although every effort has been made to minimize this. ED Course/Re-evaluation: 12:30 p.m.: Head CT ordered in this patient for trauma for the following indication: Greater than 65 years old. Patient's right lower extremity has been splinted with Moira boot and she will follow up with Orthopedics on-call Dr. Justice Hodges. I have offered hospital admission however she states that she feels comfortable and is able to care for herself, she lives with her daughter. No evidence of compartment syndrome. Patient was re-evaluated with serial examinations. Her wound is closed with tissue adhesive. I discussed her negative head CT imaging results. I offered admission for her right lower extremity injury however she states that she feels comfortable being discharged home is able to care for self. Usual customary head injury precautions and orthopedic precautions and instructions provided. I saw this patient independently based on established practice protocols. Care of patient under supervision of secondary supervising physician Dr Solis. Departure - Departure Disposition: Home, Routine, Self-Care Clinical Impression: Closed fracture of right distal fibula Qualifiers: Encounter type: initial encounter Fracture morphology: other fracture Qualified Code(s): S82.831A - Other fracture of upper and lower end of right fibula, initial encounter for closed fracture Head injury Qualifiers: Encounter type: initial encounter Qualified Code(s): S09.90XA - Unspecified injury of head, initial encounter Forehead laceration Qualifiers: Encounter type: initial encounter Qualified Code(s): S01.81XA - Laceration without foreign body of other part of head, initial encounter Condition: Good Instructions: Ankle Fracture (ED), Care For Your Stitches (ED), Laceration (ED) Additional Instructions: Return to the ER immediately if you experience discoloration, have worsening pain, numbness, tingling, or any other symptoms that concern you. If you received x-rays in the emergency department today, be advised, that ligamentous , tendon, muscular, and other non-bony injury cannot be fully ruled out. [Try to keep your affected extremity elevated above the level of your chest, and keep cold packs on the affected area, for the next 48 hours.] Referrals: Justice Hodges MD [Medical Doctor] - 2-3 days, call for appt. (Dr. Justice Hodges is orthopedic doctor)
[2017-08-30] MEDS ORDERED: SKIN ADHESIVE (DERMABOND) 1 EACH TP ONE (13:40)
[2017-08-30 14:10] VITALS: BP 147/80
== END 2017-08-30 14:08 | disposition home or self-care (01) ==
PROC: 0HQ1XZZ Repair Face Skin, External Approach (ICD-10-PCS; principal; 2017-08-30)
DX: S82.831A Other fracture of upper and lower end of right fibula, initial encounter for closed fracture (principal); J45.909 Unspecified asthma, uncomplicated; S01.112A Laceration without foreign body of left eyelid and periocular area, initial encounter; W22.8XXA Striking against or struck by other objects, initial encounter
CPT/HCPCS: 12011; 70450; 73610; 99284; L4386

== ENCOUNTER 2017-10-29 18:38 | Emergency (ER) | payer OTHER, MEDICARE ==
--- NOTE | 2017-10-29 18:55 | EDPHY ---
H & P Time Seen by Provider: 10/29/17 18:46 HPI/ROS: CHIEF COMPLAINT: Right hand injury HISTORY OF PRESENT ILLNESS: 66-year-old female presents to the emergency department with injury to the right hand. The patient states that she was outside playing at her daughter's house with her grandchildren and tripped going up the stairs injuring her right hand. She did not hit her head or lose consciousness. The incident happened around 4 o'clock this afternoon. She complains of isolated pain to the right hand. Denies any other trauma or injury. She did apply ice to the wound. She believes her tetanus shot is current. ROS: Denies numbness or tingling in her fingers, pain in her right wrist or elbow. Past Medical/Surgical History: Liver failure, liver shunt, psoriasis, arthritis, cholecystectomy, orthopedic surgery, poor balance with history of frequent falls Social History: and lives in [place] Smoking Status: Never smoked Physical Exam: Examination the right hand reveals obvious swelling and ecchymosis to the dorsal aspect of the right hand. She has ecchymosis in her right palm especially overlying the 4th and 5th MCP joints. Tenderness with palpation especially over the right 5th MCP joint. No obvious rotational deformities noted. She does have limited flexion especially in that right 5th finger secondary to pain and swelling. There is a very small superficial abrasion to the dorsal aspect of the right 3rd finger near the eponychial fold. No suturable lacerations noted. Normal sensation to light touch with normal 2 point discrimination. Strong radial pulse at the right wrist. Full range of motion of her right wrist without any pain or difficulty. Full range of motion of the right elbow. She has ecchymosis noted to the anterior aspect of her right proximal leg. Normal gait. Constitutional: Initial Vital Signs Temperature (C) 36.5 C 10/29/17 18:42 Heart Rate 86 10/29/17 18:42 Respiratory Rate 18 10/29/17 18:42 Blood Pressure 142/85 H 10/29/17 18:42 O2 Sat (%) 90 L 10/29/17 18:42 O2 Delivery Mode Room Air Allergies/Adverse Reactions: cortisone [Cortisone] Allergy (Severe, Verified 10/29/17 18:41) Hives oxycodone HCl [From Percocet] Allergy (Intermediate, Verified 10/29/17 18:41) Itching acetaminophen [From Percocet] Allergy (Unknown, Verified 10/29/17 18:41) UNK Home Medications: Medication Instructions Recorded Calcium Carb W/Vit D [Calcium Carb 500 mg PO DAILY 10/29/09 W/Vit D 500/200 (*)] Esomeprazole Mag Trihydrate 40 mg PO HS 07/13/17 [Nexium] FLUoxetine [Prozac 20 MG (*)] 20 mg PO DAILY 07/13/17 Furosemide [Lasix 40 MG (*)] 40 mg PO DAILY 07/13/17 [place]os-3 Fatty Acids [Fish Oil 1000 1,000 mg PO DAILY 07/13/17 mg (*)] Rifaximin [Xifaxan] 550 mg PO BID 07/13/17 Spironolactone [Aldactone] 50 mg PO DAILY 07/13/17 Lidocaine 4%/Menthol 1% [Icy Hot 1 patch TD DAILY #10 patch 07/15/17 Lidocaine/Menthol 4%/1% Patch (*)] Patch Removal 1 ea TD DAILY21 patch 07/15/17 Advair 100/50 (*) 08/30/17 MDM/Departure - MDM Imaging Results: Imaging Impressions Hand X-Ray 10/29/17 18:52 Impression: 1. Minimally comminuted mildly displaced 4th metacarpal fracture. 2. Mildly displaced 3rd metacarpal fracture. 3. Transverse minimally displaced proximal 5th phalangeal fracture. 4. 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 I did encourage her to elevate her arm to help reduce swelling and apply cool compresses. ED Course/Re-evaluation: 66-year-old female presents to the emergency department with right hand injury. X-rays reveal fractures to the 3rd metacarpal, 4th metacarpal and base of the proximal phalanx of the 5th finger. She was placed in a splint and given orthopedic hand surgical referral. She was also given copies of her x-rays. - Depart Disposition: Home, Routine, Self-Care Clinical Impression: Fracture of fourth metacarpal bone of right hand Qualifiers: Encounter type: initial encounter Fracture type: closed Metacarpal location: shaft Fracture alignment: displaced Qualified Code(s): S62.324A - Displaced fracture of shaft of fourth metacarpal bone, right hand, initial encounter for closed fracture Condition: Good Instructions: Hand Fracture (ED) Additional Instructions: Keep splint on and keep it dry. Ice and elevate to help reduce swelling. Ibuprofen 600 mg every 8 hr as needed for pain. Follow up with hand surgeon this week to recheck. Referrals: Robin Ariza MD [Medical Doctor] - 2-3 days without fail (Hand surgeon on- call)
[2017-10-29 19:40] VITALS: BP 136/82
== END 2017-10-29 19:40 | disposition home or self-care (01) ==
PROC: 2W3EX1Z Immobilization of Right Hand using Splint (ICD-10-PCS; principal; 2017-10-29)
DX: S62.314A Displaced fracture of base of fourth metacarpal bone, right hand, initial encounter for closed fracture (principal); S62.312A Displaced fracture of base of third metacarpal bone, right hand, initial encounter for closed fracture; S62.616A Displaced fracture of proximal phalanx of right little finger, initial encounter for closed fracture; W10.8XXA Fall (on) (from) other stairs and steps, initial encounter; Z91.81 History of falling; Y92.019 Unspecified place in single-family (private) house as the place of occurrence of the external cause